=== PATIENT | female | born 1995 | race Caucasian/White ===

== ENCOUNTER 2020-03-26 10:16 | Emergency (ER) | payer BC ==
[2020-03-26] MEDS ORDERED: diphenhydrAMINE 50 MG/ML SDV IVPUSH ONE (11:21)
[2020-03-26] MEDS ORDERED: Famotidine 20 MG/2 ML SDV IVPUSH ONE (11:21)
[2020-03-26] MEDS ORDERED: Sodium Chloride 0.9% 10 ML Syringe FLUSH PRN (11:21)
[2020-03-26] MEDS ORDERED: methylPREDNISolone Sodium Succinate 125 MG/2 ML SDV IVPUSH ONE (11:21)
--- NOTE | 2020-03-26 11:58 | EDM.PDOC ---
ED HPI GENERAL MEDICAL PROBLEM - General Chief Complaint: Allergic Reaction Stated Complaint: ALLERGIC RX TO MEDICATION Time Seen by Provider: 03/26/20 11:10 Source of Information: Reports: Patient, RN Notes Reviewed History Limitations: Reports: No Limitations - History of Present Illness INITIAL COMMENTS - FREE TEXT/NARRATIVE: Patient is a 25-year-old female who presents to the ED for evaluation of a possible allergic reaction to metronidazole. The patient was recently started on Flagyl on March 22 for bacterial vaginosis due to foul smell and increased vaginal discharge. She took her medications as prescribed, and she states she developed eye puffiness, redness and irritation, and woke up this morning and states it was very hard to see due to the swelling around her eyes. She is not having any shortness of breath or difficulty breathing, she is denying any issues swallowing, but states her throat does hurt a little bit. She did take Benadryl 25 mg this morning with not a lot of relief. She denies any fevers or chills, cough, nausea/vomiting/diarrhea. - Related Data Allergies Allergy/AdvReac Type Severity Reaction Status Date / Time metronidazole Allergy Facial Verified 03/26/20 12:02 Swelling Sulfa (Sulfonamide Allergy Hives Verified 03/26/20 10:36 Antibiotics) Home Meds: Home Meds Desogestrel/Ethinyl Estradiol [Apri] 1 tab PO DAILY 03/18/14 [History] Albuterol [Ventolin HFA] 2 inh IH Q4H PRN 03/26/20 [History] Amphetamine/Dextroamphetamine [Adderall] 10 mg PO DAILY 03/26/20 [History] Clindamycin Phosphate [Clindesse] 5 gm VG QPM #7 applicful 03/26/20 [Rx] ClonazePAM [KlonoPIN] 0.5 mg PO DAILY PRN 03/26/20 [History] predniSONE 20 mg PO ASDIRECTED #15 tab 03/26/20 [Rx] Past Medical History Respiratory History: Reports: Asthma Psychiatric History: Reports: ADD, Anxiety, Depression Social & Family History - Tobacco Use Tobacco Use Status *Q: Never Tobacco User Second Hand Smoke Exposure: No - Caffeine Use Caffeine Use: Reports: None - Recreational Drug Use Recreational Drug Use: Yes Drug Use in Last 12 Months: Yes Recreational Drug Type: Reports: Marijuana/Hashish Recreational Drug Use Frequency: Socially ED ROS ALLERGIC REACTION - Review of Systems Review Of Systems: Comprehensive ROS is negative, except as noted in HPI. ED EXAM GENERAL NO PERIP PULSE - Physical Exam Exam: See Below Exam Limited By: No Limitations General Appearance: Alert, WD/WN, No Apparent Distress Eye Exam: Bilateral Eye: EOMI, Periorbital Changes (both periorbital areas are erythematous), PERRL Throat/Mouth: Normal Inspection, Normal Lips, Normal Teeth, Normal Gums, Normal Oropharynx, Normal Voice, No Airway Compromise Head: Atraumatic, Normocephalic Neck: Normal Inspection Respiratory/Chest: No Respiratory Distress, Lungs Clear, Normal Breath Sounds, No Accessory Muscle Use, Chest Non-Tender Cardiovascular: Normal Peripheral Pulses, Regular Rate, Rhythm, No Edema, No Murmur Extremities: Normal Inspection, Normal Capillary Refill Neurological: Alert, Oriented, Normal Cognition, No Motor/Sensory Deficits Psychiatric: Normal Affect, Normal Mood Skin Exam: Warm, Dry, Intact, Normal Color, No Rash Course - Vital Signs Last Recorded V/S: Last Vital Signs Temp 97.6 F 03/26/20 10:31 Pulse 78 03/26/20 10:31 Resp 16 03/26/20 10:31 BP 129/87 03/26/20 10:31 Pulse Ox 99 03/26/20 10:31 - Orders/Labs/Meds Orders: Active Orders 24 hr Category Date Time Status Peripheral IV Care [RC] . DIRECTED Care 03/26/20 11:22 Active Sodium Chloride 0.9% [Saline Flush] Med 03/26/20 11:21 Active 10 ml FLUSH ASDIRECTED PRN Peripheral IV Insertion Adult [OM.PC] Stat Oth 03/26/20 11:22 Ordered Medication Orders Sodium Chloride (Saline Flush) 10 ml FLUSH ASDIRECTED PRN PRN Reason: Keep Vein Open Last Admin: 03/26/20 11:30 Dose: 10 ml Documented by: EMANUEL Meds: Medications Generic Name Dose Route Start Last Admin Trade Name Freq PRN Reason Stop Dose Admin Sodium Chloride 10 ml 03/26/20 11:21 03/26/20 11:30 Saline Flush FLUSH 10 ml ASDIRECTED PRN Administration Keep Vein Open Discontinued Medications Generic Name Dose Route Start Last Admin Trade Name Freq PRN Reason Stop Dose Admin Diphenhydramine HCl 50 mg 03/26/20 11:21 03/26/20 11:30 Benadryl IVPUSH 03/26/20 11:22 50 mg ONETIME ONE Administration Famotidine 20 mg 03/26/20 11:21 03/26/20 11:30 Pepcid IVPUSH 03/26/20 11:22 20 mg ONETIME ONE Administration Methylprednisolone Sodium Succinate 125 mg 03/26/20 11:21 03/26/20 11:30 Solu-Medrol IVPUSH 03/26/20 11:22 125 mg ONETIME ONE Administration - Re-Assessments/Exams Free Text/Narrative Re-Assessment/Exam: 03/26/20 11:20 The patient presents to the ED for the evaluation of her allergic reaction to Flagyl. She will get 125 mg IV Solu-Medrol, IV Benadryl, and IV Pepcid for further allergic reaction relief. She will be sent home on oral steroids and she will be switched to clindamycin intravaginally for her bacterial vaginosis. I did tell her she should stop taking the metronidazole. Patient verbalized understanding of this plan. Departure - Departure Time of Disposition: 11:58 Disposition: Home, Self-Care 01 Condition: Good Clinical Impression: Allergic reaction caused by a drug Qualifiers: Encounter type: initial encounter Qualified Code(s): T78.40XA - Allergy, unspecified, initial encounter - Discharge Information *PRESCRIPTION DRUG MONITORING PROGRAM REVIEWED*: No *COPY OF PRESCRIPTION DRUG MONITORING REPORT IN PATIENT [place]: No Prescriptions: Clindamycin Phosphate [Clindesse] 5 gm VG QPM #7 applicful predniSONE 20 mg PO ASDIRECTED #15 tab Instructions: Anaphylactic Reaction, Adult Referrals: PCP,None [Primary Care Provider] - Forms: ED Department Discharge Additional Instructions: You were seen in the ER today for your suspected allergic reaction. This is thought to be due to the metronidazole antibiotic you are taking, please cease use of this. A prescription for clindamycin, intravaginal cream has been provided to you, please take as directed until gone for bacterial vaginosis. You were given some IV medications to help relieve these symptoms, this seemed to work well for you. This included IV steroids, IV Pepcid, and IV Benadryl, along with some IV fluids. You will be started on a steroid burst, please take as directed until gone. You may take Benadryl 25 mg every 4 hours as needed for further symptomatic relief, along with Pepcid 20 mg twice daily when you are taking the prednisone. Please return to the ER at any time if your symptoms change or worsen. Sepsis Event Note (ED) - Evaluation Sepsis Screening Result: No Definite Risk - Focused Exam Vital Signs: Vital Signs Temp Pulse Resp BP Pulse Ox 03/26/20 10:31 97.6 F 78 16 129/87 99 - My Orders Last 24 Hours: My Active Orders 03/26/20 11:21 Sodium Chloride 0.9% [Saline Flush] 10 ml FLUSH ASDIRECTED PRN 03/26/20 11:22 Peripheral IV Care [RC] . DIRECTED Peripheral IV Insertion Adult [OM.PC] Stat - Assessment/Plan Last 24 Hours: My Active Orders 03/26/20 11:21 Sodium Chloride 0.9% [Saline Flush] 10 ml FLUSH ASDIRECTED PRN 03/26/20 11:22 Peripheral IV Care [RC] . DIRECTED Peripheral IV Insertion Adult [OM.PC] Stat
== END 2020-03-26 12:35 | disposition home or self-care (01) ==
LOC: JD.ED 10:16
DX: H57.89 Other specified disorders of eye and adnexa (principal); J45.909 Unspecified asthma, uncomplicated; F98.8 Other specified behavioral and emotional disorders with onset usually occurring in childhood and adolescence; Z88.1 Allergy status to other antibiotic agents; Z88.2 Allergy status to sulfonamides; Z79.899 Other long term (current) drug therapy; T37.3X5A Adverse effect of other antiprotozoal drugs, initial encounter
CPT/HCPCS: 96374; 96375; 99283; J1200; J2930; J3490